=== PATIENT | female | born 1970 | race Caucasian/White ===

== ENCOUNTER → 2018-02-25 08:53 | Outpatient (CLI) | payer MEDICAID, SELFPAY ==
[2018-02-25 09:43] LABS: Abs Immature Grans 0.02 k/cumm (0.0-0.09); Absolute Basophil Count 0.03 k/cumm (0.0-0.2); Absolute Eosinophil Count 0.11 k/cumm (0.0-0.7); Absolute Lymphocyte Count 3.02 k/cumm (1.2-3.4); Absolute Monocyte Count 0.67 k/cumm (0.11-0.7); Basophils % 0.3; HCT 42.3 % (36.0-46.0); HGB 14.1 g/dL (12.0-15.5); Immature Grans % 0.2; Lymphocytes % 27.4; Mean Corp. HGB Concentration 33.3 g/dL (32.0-36.0); Mean Corpuscular Hemoglobin 32.9 pg (27.0-33.0); Mean Corpuscular Volume 98.8 fL (80-95); Mean Platelet Volume 11.2 fL (8.0-11.0); Monocytes % 6.1; Platelet Count 218 x1000/uL (130-400); RBC 4.28 m/cumm (4.00-5.20); RBC Distribution Width 12.7 % (11.7-14.6); White Blood Cell Count 11.04 k/cumm (4.4-10.8)
[2018-02-25 09:48] LABS: Absolute Neutrophil Count 7.18 k/cumm (1.2-6.7)
[2018-02-25 11:19] LABS: Anion Gap 8.6 mmol/L (3-11); BUN 15 mg/dL (7-18); CO2 27.4 mmol/L (21.0-32.0); CREATININE 0.89 mg/dL (0.55-1.02); Calcium 8.8 mg/dL (8.5-10.1); Chloride 104 mmol/L (98-107); Glucose 93 mg/dL (70-100); Potassium 4.1 mmol/L (3.5-5.1); Sodium 140 mmol/L (136-145)
[2018-02-25 11:37] LABS: Cholesterol 140 mg/dL (50-200); HDL Cholesterol 53 mg/dL (40-60); LDL CHOLESTEROL 70 mg/dL (<100); Triglyceride 133 mg/dL (30-150)
== END ==
PROVIDERS: Student in an Organized Health Care Education/Training Program; PCP Internal Medicine; Visit Provider Internal Medicine
DX: E03.9 Hypothyroidism, unspecified (principal); R53.83 Other fatigue; R63.8 Other symptoms and signs concerning food and fluid intake; N93.9 Abnormal uterine and vaginal bleeding, unspecified; Z13.220 Encounter for screening for lipoid disorders
CPT/HCPCS: 36415; 80048; 80061; 83721; 84443; 85025

== ENCOUNTER 2018-06-05 12:37 | Outpatient (REF) | payer MEDICAID, SELFPAY ==
--- NOTE | 2018-06-05 15:40 | ENDOMET_PTH ---
PATIENT: Michelle Brown LOC: N U#:[id number] AGE/SX: 47/F ROOM: RE06/05/[address]: Marimar Corey : 1970 BED: DIS: 06/05/2018 SPEC #: [id number] RECD: 06/06/18 12:48 STATUS: MELISSA REQ #: [id number] ROMY: 06/05/18 15:[address]: Marimar Corey DEPT: Surgical Specimen RECD BY: Kusum Gu ENTERED: 06/06/18 12:48 SP TYPE: Endomet OTHR DR: Tiffany Cantrell MD Tissues: 1 - ENDOMETRIUM BX/SAVITA Procedures: GROSS AND MICRO LEVEL 4 Comments: [id number]
== END 2018-06-05 12:57 ==
LOC: LBN 12:37
PROVIDERS: PCP Internal Medicine; Visit Provider Obstetrics & Gynecology Gynecology
DX: N93.8 Other specified abnormal uterine and vaginal bleeding (principal); N85.8 Other specified noninflammatory disorders of uterus
CPT/HCPCS: 88305

== ENCOUNTER 2018-06-05 16:21 | Outpatient (CLI) | payer MEDICAID, SELFPAY ==
[2018-06-05 18:02] LABS: TSH (W/Ref FT4) 9.45 uIU/mL (0.358-3.74)
[2018-06-05 19:31] LABS: FREE T4 1.04 ng/dL (0.76-1.46)
== END 2018-06-05 16:41 ==
PROVIDERS: PCP Internal Medicine; Visit Provider Obstetrics & Gynecology Gynecology
DX: N93.9 Abnormal uterine and vaginal bleeding, unspecified (principal)
CPT/HCPCS: 36415; 85027; 84439; 84443

== ENCOUNTER 2020-11-01 01:24 | Outpatient (CLI) | payer MEDICAID, SELFPAY ==
--- NOTE | 2020-11-01 06:15 | DI.US_ITS ---
Exam(s) US PELVIS TRANSVAGINAL EXAM: US PELVIS TRANSVAGINAL CLINICAL HISTORY: abnormal uterine bleeding. Rx with norethindrone,n93.9. TECHNIQUE: Transabdominal and transvaginal pelvic ultrasound was performed using standard protocol. COMPARISON: No exams were available for comparison FINDINGS: KIDNEYS: Kidneys are symmetric in size. There is an 8 mm echogenic focus in the left kidney which may represent a nonobstructive stone. No evidence of hydronephrosis. No renal mass or cyst identified. UTERUS: Position: Anteverted. Size: 5.3 long by 2.3 AP by 3 transverse cm Endometrium: 0.1 cm. Normal for patient's menstrual status. Myometrium: Unremarkable. Cervix: Unremarkable. OVARIES: Right: 2.2 x 1.3 x 1.5 cm Cyst or mass: None. Left: 1.5 x 1 x 1 cm Cyst or mass: None. DOPPLER: Color: Symmetric and uniform flow to both ovaries. No hyperemia. Duplex: Normal ovarian arterial waveforms visualized. CUL-DE-SAC: Free fluid: None. Other: None. IMPRESSION: 1. 8 mm echogenic focus in the left kidney which may represent a nonobstructing stone. 2. Normal-appearing uterus with endometrial stripe within normal limits. 3. Unremarkable bilateral ovaries. DATA REPOSITORY:
== END 2020-11-01 01:44 ==
PROVIDERS: PCP Internal Medicine; Visit Provider Obstetrics & Gynecology Gynecology
DX: N93.8 Other specified abnormal uterine and vaginal bleeding (principal); E03.9 Hypothyroidism, unspecified; N20.0 Calculus of kidney
CPT/HCPCS: 76830; 76856

== ENCOUNTER 2020-11-01 02:21 | Outpatient (CLI) | payer MEDICAID, SELFPAY ==
[2020-11-01 13:08] LABS: TSH (W/Ref FT4) 0.19 uIU/mL (0.36-3.74)
[2020-11-01 13:26] LABS: FREE T4 1.46 ng/dL (0.76-1.46)
== END 2020-11-01 02:22 | disposition home or self-care (01) ==
LOC: LOS 02:22
PROVIDERS: PCP Internal Medicine; Visit Provider Obstetrics & Gynecology Gynecology
DX: E03.9 Hypothyroidism, unspecified (principal); N93.8 Other specified abnormal uterine and vaginal bleeding
CPT/HCPCS: 36415; 84439; 84443

== ENCOUNTER 2021-05-16 03:42 | Outpatient (CLI) | payer MEDICAID, SELFPAY ==
[2021-05-16 12:17] LABS: TSH (W/Ref FT4) < 0.01 uIU/mL (0.36-3.74)
[2021-05-16 12:46] LABS: FREE T4 1.43 ng/dL (0.76-1.46)
== END 2021-05-16 03:43 | disposition home or self-care (01) ==
LOC: LBO 03:42
PROVIDERS: PCP Internal Medicine; Visit Provider Obstetrics & Gynecology Gynecology
DX: E03.9 Hypothyroidism, unspecified (principal)
CPT/HCPCS: 36415; 84439; 84443

== ENCOUNTER 2022-03-16 04:04 | Outpatient (CLI) | payer MEDICAID, SELFPAY ==
[2022-03-16 11:49] LABS: Abs Immature Grans 0.04 10^3/uL (0.0-0.06); Absolute Basophil Count 0.04 10^3/uL (0.0-0.2); Absolute Eosinophil Count 0.09 10^3/uL (0.0-0.7); Absolute Lymphocyte Count 3.11 10^3/uL (1.2-3.4); Absolute Monocyte Count 0.76 10^3/uL (0.1-0.8); Absolute Neutrophil Count 5.96 10^3/uL (1.2-6.7); Basophils % 0.4; Eosinophils % 0.9; HCT 42.9 % (36.0-46.0); HGB 14.3 g/dL (11.2-15.7); Immature Grans % 0.4; Lymphocytes % 31.1; MCH 31.8 pg (27.0-33.0); MCHC 33.3 % (32.0-36.0); MCV 96 fL (80-95); MPV 10.3 fL (8.0-11.0); Monocytes % 7.6; Neutrophils % 59.6; Platelet Count 228 10^3/uL (130-400); RBC 4.49 10^6/uL (3.93-5.22); RDW 11.9 % (11.7-14.6); RDW-SD 42.4 fL
[2022-03-16 12:24] LABS: Anion Gap 9.8 mmol/L (3-11); BUN 15 mg/dL (7-18); CO2 25.2 mmol/L (21.0-32.0); CREATININE 0.8 mg/dL (0.55-1.02); Calcium 8.9 mg/dL (8.5-10.1); Chloride 104 mmol/L (98-107); Estimated GFR 88.05 (mL/min/1.73m2); Glucose 95 mg/dL (74-106); Lipase 155 U/L (73-393); Potassium 3.7 mmol/L (3.5-5.1); Sodium 139 mmol/L (136-145); TSH (W/Ref FT4) 0.02 uIU/mL (0.36-3.74)
[2022-03-16 12:40] LABS: FREE T4 1.72 ng/dL (0.76-1.46)
== END 2022-03-16 04:05 | disposition home or self-care (01) ==
LOC: LBO 04:06
PROVIDERS: PCP Nurse Practitioner Adult Health; Visit Provider Nurse Practitioner Adult Health
DX: E03.9 Hypothyroidism, unspecified (principal); R10.13 Epigastric pain; R10.9 Unspecified abdominal pain; R12 Heartburn
CPT/HCPCS: 36415; 80048; 83690; 84439; 84443; 85025

== ENCOUNTER → 2022-03-24 00:13 | Outpatient (CLI) | payer MEDICAID, SELFPAY ==
--- OUTSIDE RECORDS SUMMARY | 2022-03-24 00:15 | XMS_ITS | Encounter Summary ---
:[address] [facility] Address [address] [place] [address] Care Team Providers Name Role Phone Unavailable Primary Care Provider Unavailable Encounter Details Date Type Department Care Team Description 04/24/2012 Results Only [facility] Chanelle Cantrell MD Laboratory Services - [address] [place] [id number] [address] [facility] [place] [address] [phone] Social History Tobacco Use Types Packs/Day Years Used Date Never Assessed Sex Assigned at Date Recorded Not on file documented as of this encounter Plan of Treatment Not on filedocumented as of this encounter Procedures Procedure Name Priority Date/Time Associated Diagnosis Comme nts PAP TEST- RESULT Routine 04/24/2012 0:00 EDT Resu lts for this ONLY procedure are i n the results section. documented in this encounter Results PAP TEST- RESULT ONLY (04/24/2012 0:00 EDT) Pathology Report: CYTOPATHOLOGY REPORT [facility] Reports generated via electronic interface contain yue ginal data; however they are lacking the format of the original re port. Caution should be taken when reading/interpreting unfo rmatted reports. Name: ? ANA ROD ? Accession #: ? [id number] : ? 1970 (Age: 41) ??F ?Collect Date: ? 04/02 Location: ? [facility] ? Receive Date : ? 04/26/2012 Provider: ?CHANELLE CANTRELL MD Copy to: ? Specimen/Source: ? Pap Test, Cervix, ThinPrep Imaging System with manual evaluation Last Menstrual Period: ? 04/24/2012 ? SPECIMEN ADEQUACY ? Satisfactory for Evaluation - transformation zone component absent GENERAL CATEGORIZATION ? Negative for Intraepithelial Lesion or Malignan cy ? Document reviewed and electronically signed by: ? Jessica Reyes, BRANDIE(ASCP)(IAC) ? Report Date: ??05/01/2012 13:24 End of Report Specimen Performing Organization Address City/State/ZIP Code Phon e Number [facility] [address] [place] [address] SERVICES [facility] [address] [place] [address] documented in this encounter Visit Diagnoses Not on filedocumented in this encounter
--- OUTSIDE RECORDS SUMMARY | 2022-03-24 00:15 | XMS_ITS | Encounter Summary ---
:1970 Author Organization [facility] Address [address] [place] [address] Care Team Providers Name Role Phone Unknown, Provider Primary Care Provider Encounter Details Date Type Department Care Team Description 04/25/2017 Hospital Encounter [facility] [place] Unknown, Provider, [facility] [address] [place] [address] [place] [address] (Work) [phone] Social History Tobacco Use Types Packs/Day Years Used Date Never Assessed Sex Assigned at Date Recorded Not on file documented as of this encounter Discharge Disposition Disposition Code Departure Means Destination Home or Self Retirement documented in this encounter Plan of Treatment Not on filedocumented as of this encounter Visit Diagnoses Not on filedocumented in this encounter Care Teams Loss Prevention And Safety Manager Relationship Specialty Start Date End Date Unknown, Provider, PCP - General 05/08/15 documented as of this encounter
--- OUTSIDE RECORDS SUMMARY | 2022-03-24 00:15 | XMS_ITS | Encounter Summary ---
:1970 Author Organization [facility] Address [address] [place] [address] Care Team Providers Name Role Phone Unknown, Provider Primary Care Provider Encounter Details Date Type Department Care Team Description 06/05/2018 Hospital Encounter [facility] [place] Unknown, Provider, [facility] [address] [place] [address] [place] [address] (Work) [phone] Social History Tobacco Use Types Packs/Day Years Used Date Never Assessed Sex Assigned at Date Recorded Not on file documented as of this encounter Discharge Disposition Disposition Code Departure Means Destination Home or Self Jail documented in this encounter Plan of Treatment Not on filedocumented as of this encounter Visit Diagnoses Not on filedocumented in this encounter Care Teams System Support Analyst Relationship Specialty Start Date End Date Unknown, Provider, PCP - General 05/08/15 documented as of this encounter
--- OUTSIDE RECORDS SUMMARY | 2022-03-24 00:15 | XMS_ITS | Encounter Summary ---
:1970 Author Organization [facility] Address [address] [place] [address] Care Team Providers Name Role Phone Unavailable Primary Care Provider Unavailable Encounter Details Date Type Department Care Team Description 10/08/2006 Hospital Encounter [facility] - Maggie Cadena, Other MD [id number] [place] [phone] (Wo rk) Social History Tobacco Use Types Packs/Day Years Used Date Never Assessed Sex Assigned at Date Recorded Not on file documented as of this encounter Discharge Disposition Disposition Code Departure Means Destination Home or Self Care documented in this encounter Plan of Treatment Not on filedocumented as of this encounter Visit Diagnoses Not on filedocumented in this encounter
--- OUTSIDE RECORDS SUMMARY | 2022-03-24 00:15 | XMS_ITS | Encounter Summary ---
:1970 Author Organization [facility] Address [address] [place] [address] Care Team Providers Name Role Phone Unknown, Provider Primary Care Provider Encounter Details Date Type Department Care Team Description 06/05/2018 Results Only [facility]- Murali Martinez MD [phone] [place] [address] [address] [place] [address] (Wo rk) Social History Tobacco Use Types Packs/Day Years Used Date Never Assessed Sex Assigned at Date Recorded Not on file documented as of this encounter Plan of Treatment Not on filedocumented as of this encounter Procedures Procedure Name Priority Date/Time Associated Diagnosis Comme [facility] SURGICAL PATHOLOGY Routine 06/05/2018 15:58 Resul ts for this EST procedure are i n the results section. documented in this encounter Results SURGICAL PATHOLOGY (06/05/2018 15:58 EST) Pathology Report: SURGICAL PATHOLOGY REPORT [facility] Reports generated via electronic interface conta in original data; [facility] however they are lacking the format of the original re port. SERVICES Caution should be taken when reading/interpreting unfo rmatted reports. Name: ? ANA PENALOZA ? Accession #: ? [id number] ? : ? 1970 (Age: 47 ) ??F ? Collect Date: ? 06/05/2018 ? Location: ? [facility] ? Receive Date: ? 06/06/20 18 ? Provider: MURALI LINN MD Copy to: CHANELLE ETIENNE MD ? Final Pathologic Diagnosis: ENDOMETRIUM, BIOPSY: - Inactive and atrophic endometrial glan ds and stromal pseudo-decidual changes consistent with exogenous progesterone effect. - Stromal and glandular breakdown. - Endocervical glandular epithelium with no specific histopathologic features. Document reviewed and electronically signed by: Pancho Taylor MD Report ??Date: 06/08/2018 12:06 By the signature above, the attending physician certif ies that he/she has personally conducted a gross and/or microscopic examin ation of the described specimens and rendered or confirmed the above diagnosi s. Specimen(s) Received: Endometrial biopsy Clinical History: Abnormal uterine bleeding Gross Description: ? Received in formalin labelled with proper patient identification (initials P, S) and endometrium are duran and brown tissu e fragments aggregating 1.0 x 0.8 x 0.6 cm. Entirely submitted in 1 and 2. FELICITA Winston (ASCP) 06/06/2018 4:15 PM End of Report Specimen Performing Organization Address City/State/ZIP Code Phon e Number [facility] [address] [place] [address] SERVICES documented in this encounter Visit Diagnoses Not on filedocumented in this encounter Care Teams Mobile Tester Relationship Specialty Start Date End Date Unknown, Provider, PCP - General 05/08/15 documented as of this encounter
--- OUTSIDE RECORDS SUMMARY | 2022-03-24 00:15 | XMS_ITS | Encounter Summary ---
:1970 [address] [facility] Address [address] [place] [address] Care Team Providers Name Role Phone Unknown, Provider Primary Care Provider Encounter Details Date Type Department Care Team Description 04/25/2017 Results Only [facility]- Delores Ann [phone] DO [address] [place], [place] [phone] (Wo rk) Social History Tobacco Use Types Packs/Day Years Used Date Never Assessed Sex Assigned at Date Recorded Not on file documented as of this encounter Plan of Treatment Not on filedocumented as of this encounter Procedures Procedure Name Priority Date/Time Associated Diagnosis Comme nts PAP TEST- RESULT Routine 04/25/2017 0:00 EDT Resu lts for this ONLY procedure are i n the results section. documented in this encounter Results PAP TEST- RESULT ONLY (04/25/2017 0:00 EDT) Pathology Report: CYTOPATHOLOGY REPORT [facility] Reports generated via electronic interface contain yue ginal data; SERVICES however they are lacking the format of the original re port. Caution should be taken when reading/interpreting unfo rmatted reports. Name: ? ANA PENALOZA ? Accession #: ? [id number] ? : ? 1970 (Age: 46 ) ??F ?Collect Da te: ? 04/25/2017 ? Location: ? [facility] ? Receive Date: ? 017 ? Provider: DELORES JORGE DO Copy to: ? Final Report SPECIMEN ADEQUACY ? Satisfactory for Evaluation - transformation zone component present - scant squamous epithelial component secondary to exc essive blood - obscuring contamination, possibly lubricant GENERAL CATEGORIZATION ? Other, see interpretation INTERPRETATION ? Endometrial cells present in a woman equal to o r greater than age 45. Negative for Intraepithelial Lesion. EDUCATIONAL NOTES/RECOMMENDATIONS ? ASCCP management guid erin advises using histologic endometrial assessment only in postmenopausal women. Benign appearing endometrial cells on Pap tests are usually a normal finding in women with regular menstrual cycles, especially if the Pap test was collected during the first half of the menstrual cycle. There is data showing that e ndometrial cells on Pap tests may be associated with endometrial/uterine abnormal ities in post menopausal women or in perimenopausal women with abnormal bleeding. There is limited data on the significance of aiyana ign endometrial cells in post menopausal women on HRT. ??Clinical correlation is rec ommended. Note: ??The Pap test is not an accurate test for the screening of endometrial lesions and should not be used as a follow up in patie nts with clinical suspicion of endometrial pathology. Last Menstrual Period: 04/17/2017 Other: Additional clinical i nformation: Mother had uterine CA, Sister CX Cancer. Metromgnaormagia Specimen/Source: ??Pap Test, Cervix, ThinPrep Imaging System with manual evaluation Document reviewed and electronically signed by: ? RUKHSANA HAY MD ? Report ??Date: 05/17/2017 18:58 HPV with Pap Test ? Date Ordered: ? 05/17/2017 ? Status: ?? Signed Out ?Date Complete: ? 05/21/2017 ? By: ??S ystem Interface ? Date Reported: ? 05/21/2017 ? Interpretation RESULT: Positive for high or intermediate risk HPV. E6 OR E7 mRNA from one or more types of HPV types 16,1 8,31, 33,35,39,45,51,52,56,58,59,66, and 68 is detected by web site designer mediated amplification. High and intermediate risk HPV types are associated wi th most squamous intraepithelial lesions and cervical can cers. Comments Document reviewed and electronically signed by: ? System Interface ? Report date: 05/21/2017 By the signature above, the attending physician certif ies that he/she has personally conducted a gross and/or microscopic examin ation of the described specimens and rendered or confirmed the above diagnosi s. End of Report Specimen Performing Organization Address City/State/ZIP Code Phon e Number [facility] [address] [place] [address] SERVICES documented in this encounter Visit Diagnoses Not on filedocumented in this encounter Care Teams Learning Support Services Director Relationship Specialty Start Date End Date Unknown, Provider, PCP - General 05/08/15 documented as of this encounter
--- OUTSIDE RECORDS SUMMARY | 2022-03-24 00:15 | XMS_ITS | Encounter Summary ---
:1970 Author Organization [facility] Address [address] [place] [address] Care Team Providers Name Role Phone Unavailable Primary Care Provider Unavailable Encounter Details Date Type Department Care Team Description 10/08/2006 Results Only [facility] - Joan Sheppard MD conversion [address] [place] [address] [address] [place] [phone] (Wo rk) Social History Tobacco Use Types Packs/Day Years Used Date Never Assessed Sex Assigned at Date Recorded Not on file documented as of this encounter Plan of Treatment Not on filedocumented as of this encounter Procedures Procedure Name Priority Date/Time Associated Diagnosis Comme [facility] CYTOPATHOLOGY Routine 10/08/2006 0:00 EDT Results for this procedure are i n the results section . documented in this encounter Results CYTOPATHOLOGY (10/08/2006 0:00 EDT) Pathology Report: CYTOPATHOLOGY REPORT [facility] Reports generated via electronic interface contain yue ginal data; however they are lacking the format of the original re port. Caution should be taken when reading/interpreting unfo rmatted reports. Name: ? ANA ROD ? Accession #: ? [id number] : ? 1970 (Age: 36) ??F ?Collect Date: ? 03/2007 Location: ? [facility] ? Receive Date: ? 10/11/2006 Provider: ?JOAN BELL MD Copy to: ? Specimen/Source: ? ThinPrep Pap Test, Cervix/Endocervix, processed on [employer] ThinPrep Imaging System, with manual evaluation Last Menstrual Period: ? Other: ? HPVA - HPV testing requested if ASC-US on the current ThinPrep Pap test. ? SPECIMEN ADEQUACY ? Satisfactory for Evaluation - transformation zone component present GENERAL CATEGORIZATION ? Negative for Intraepithelial Lesion or Malignan cy ? Document reviewed and electronically signed by: ? BRANDIE Nagel(ASCP) ? Report Date: ??10/12/2006 12:11 End of Report Specimen Performing Organization Address City/State/ZIP Code Phon e Number [facility] [address] [place] [address] SERVICES [facility] [address] [place] [address] documented in this encounter Visit Diagnoses Not on filedocumented in this encounter
--- NOTE | 2022-03-24 08:00 | DI.US_ITS ---
Exam(s) US ABDOMEN EXAM: US ABDOMEN CLINICAL HISTORY: r/o AAA cholelithiasis/cystits,ABD AND EPIGASTRIC PAIN,R10.13,R12 TECHNIQUE: Ultrasound abdomen performed using standard protocol. COMPARISON: US US PELVIS TRANSVAGINAL from 11/01/2020 FINDINGS: LIVER: Normal size and echogenicity. No focal liver lesions are seen.. GALLBLADDER: No evidence of cholelithiasis. No evidence of wall thickening. No pericholecystic fluid identified. SHAFER'S SIGN: Negative. BILIARY SYSTEM: No intrahepatic or extrahepatic biliary ductal dilation. KIDNEYS: Kidneys are symmetric in size. No evidence of renal calculi. No evidence of hydronephrosis. No renal mass or cyst identified. PANCREAS: Normal where visualized. SPLEEN: Not enlarged. ABDOMINAL AORTA AND IVC: Visualized portions normal caliber. ASCITES: None seen. IMPRESSION: Normal sonographic appearance of the upper abdomen. DATA REPOSITORY:
== END ==
PROVIDERS: PCP Nurse Practitioner Adult Health; Visit Provider Nurse Practitioner Adult Health
DX: E03.9 Hypothyroidism, unspecified (principal); R10.13 Epigastric pain; R10.9 Unspecified abdominal pain; R12 Heartburn
CPT/HCPCS: 76700

== ENCOUNTER 2022-07-31 12:39 | Outpatient (REF) | payer MEDICAID, SELFPAY ==
--- NOTE | 2022-07-31 12:00 | PAPFT_PTH ---
PATIENT: Michelle Brown LOC: [facility] U#:[id number] AGE/SX: 51/F ROOM: RE07/31/[address]: Elisabet Caldwell APRN : 1970 BED: DIS: 07/31/2022 SPEC #: [id number] RECD: 07/31/22 17:43 STATUS: MELISSA REHeriberto #: [id number] ROMY: 07/31/22 12:[address]: Elisabet Caldwell DEPT: [facility] Cytology RECD BY: Kusum Gu Tissues: 1 - CX/ENDOCX FOR PAP SMEARS Procedures: PAP THIN PREP/UVM Screening HPV DNA PROBE Comments: [id number]
[2022-08-02 15:04] LABS: Chlamydia Result Negative (Negative); GC Result Negative (Negative)
== END 2022-07-31 12:40 | disposition home or self-care (01) ==
LOC: LBN 12:39
PROVIDERS: PCP Nurse Practitioner Adult Health; Referring Provider Nurse Practitioner Adult Health; Visit Provider Nurse Practitioner Adult Health
DX: N89.8 Other specified noninflammatory disorders of vagina (principal); Z11.3 Encounter for screening for infections with a predominantly sexual mode of transmission; Z12.4 Encounter for screening for malignant neoplasm of cervix; R87.612 Low grade squamous intraepithelial lesion on cytologic smear of cervix (LGSIL); Z11.51 Encounter for screening for human papillomavirus (HPV); R87.810 Cervical high risk human papillomavirus (HPV) DNA test positive
CPT/HCPCS: 87491; 87591; 88142; 87480; 87510; 87624; 87660

== ENCOUNTER 2022-08-14 15:28 | Outpatient (REF) | payer MEDICAID, SELFPAY ==
--- NOTE | 2022-08-14 15:30 | ENDO_PTH ---
PATIENT: Michelle Brown LOC: [facility] U#:[id number] AGE/SX: 51/F ROOM: RE08/14/[address]: Marimar Corey : 1970 BED: DIS: 08/14/2022 SPEC #: [id number] RECD: 08/14/22 17:32 STATUS: MELISSA REHeriberto #: [id number] ROMY: 08/14/22 15:[address]: Marimar Corey DEPT: Surgical Specimen RECD BY: Kusum Gu ENTERED: 08/14/22 17:33 SP TYPE: Endo OTHR DR: Elisabet Caldwell APRN Tissues: 1 - ENDOCERVICAL BX/CURRETTE 2 - CERVICAL BIOPSY Procedures: GROSS AND MICRO LEVEL 4 Comments: [id number]
== END 2022-08-14 15:29 | disposition home or self-care (01) ==
LOC: LBN 15:28
PROVIDERS: PCP Nurse Practitioner Adult Health; Visit Provider Obstetrics & Gynecology Gynecology
DX: R87.612 Low grade squamous intraepithelial lesion on cytologic smear of cervix (LGSIL) (principal); R87.810 Cervical high risk human papillomavirus (HPV) DNA test positive; N88.8 Other specified noninflammatory disorders of cervix uteri
CPT/HCPCS: 88305

== ENCOUNTER 2022-09-04 02:09 | Outpatient (CLI) | payer MEDICAID, SELFPAY ==
--- NOTE | 2022-09-04 06:45 | DI.MAMMO_ITS ---
Exam(s) MAMMO SCREENING EXAM: MAMMO SCREENING CLINICAL HISTORY: screening,z12.39 TECHNIQUE: Mammograms were interpreted according to the usual protocol including computer analysis w [employer] CAD system, tomosynthesis and C-view imaging. COMPARISON: No exams were available for comparison. Baseline examination. FINDINGS: The breasts are composed of scattered fibroglandular densities, Breast Density category B. No suspicious masses or suspicious microcalcifications are seen. No skin thickening or abnormal axillary lymph nodes are seen. IMPRESSION: BI-RADS Category 1, Negative mammogram Yearly screening mammography is recommended. Breast Density - Category B, scattered fibroglandular densities. A negative radiographic report should not delay biopsy if a dominant or clinically suspicious mass is present. Up to ten percent of cancers are not identified on mammography. A negative report may reinforce clinical impression. Adenosis and dense breasts may obscure an underlying neoplasm. False positive reports average 6 to 10%. Patient will receive a letter notifying them of these results.
--- NOTE | 2022-09-04 07:52 | DI.CTLCSR_ITS ---
Exam(s) CT CHEST LUNG CANCER SCREEN EXAM: CT CHEST LUNG CANCER SCREEN CLINICAL HISTORY: Screening for lung cancer,current smoker,f17.200 TECHNIQUE: Imaging Protocol: Axial computed tomography images with coronal and sagittal reformatted images were created and reviewed. Low dose screening protocol. COMPARISON: No exams were available for comparison FINDINGS: Tracheobronchial tree: No bronchiectasis or mucus plugging.. Mediastinum and Alley: No dominant adenopathy or fluid collection. Pulmonary parenchyma: Mild biapical scarring. No consolidation or dominant measurable mass. Mild emp hysematous changes. Lung Nodules: 3 millimeter nodule right lower lobe. Few scattered 2 millimeter nodules noted. Pleura: No effusion. No pneumothorax. Heart: The heart is not dilated. coronary artery calcifications are seen. Aorta: Thoracic aorta non-dilated. Upper abdomen: Unremarkable. Bones: Unremarkable for age. Soft Tissues: Unremarkable. IMPRESSION: No suspicious pulmonary nodules. Lung RADS Cat 2 - Benign Appearance / Behavior: Nodules with a very low likelihood of becoming a clin ically active cancer due to size or lack of growth Lung-RADS 1.0 CATEGORIES: Category 0 - Prior chest CT exam(s) being located for comparison. Category 1 - Annual screening in 12 months. No nodules or definitely benign nodules. Category 2 - Annual screening in 12 months. Benign appearance. Nodules with low likelihood of becomin g active cancer. Category 3 - 6-month follow-up. Probably benign. Short-term follow-up suggested. Nodules with low lik elihood of becoming active cancer. Category 4A - 3-month follow-up and CT/PET if >8 mm in size. Suspicious finding. Findings which requi re additional testing. Category 4B - Findings which require additional testing and tissue sampling. Category 4X - Category 3 or 4 nodules with additional features or imaging findings that increases the suspicion of malignancy. Modifier S- Potentially clinically significant findings (non lung cancer) RADIATION DOSE DELIVERED: 76.39mGy.cm Total DLP DATA REPOSITORY: All CT scans at this facility are submitted to the National Radiology Data Registry (NRDR) Dose Index Registry (DIR) with the [employer] (ACR). RADIATION OPTIMIZATION: All CT scans at this facility use at least one of these dose optimization te chniques: automated exposure control; mA and/or kV adjustment per patient size (includes targeted exa ms where dose is matched to clinical indication); or iterative reconstruction.
== END 2022-09-04 02:29 ==
LOC: DI 02:09
PROVIDERS: PCP Nurse Practitioner Adult Health; Visit Provider Nurse Practitioner Adult Health
DX: Z12.31 Encounter for screening mammogram for malignant neoplasm of breast (principal); Z12.2 Encounter for screening for malignant neoplasm of respiratory organs; F17.210 Nicotine dependence, cigarettes, uncomplicated; J43.8 Other emphysema; R91.8 Other nonspecific abnormal finding of lung field
CPT/HCPCS: 71271; 77063; 77067

== ENCOUNTER 2024-04-24 11:16 | Outpatient (REF) | payer SELFPAY ==
--- NOTE | 2024-04-24 11:00 | PAPFT_PTH ---
PATIENT: Michelle Brown LOC: [facility] U#:[id number] AGE/SX: 53/F ROOM: RE04/24/[address]: Marimar Corey : 1970 BED: DIS: 04/24/2024 SPEC #: [id number] RECD: 04/24/24 13:01 STATUS: MELISSA REHeriberto #: [id number] ROMY: 04/24/24 11:[address]: Marimar Corey DEPT: [facility] Cytology RECD BY: Kusum Gu ENTERED: 04/24/24 13:01 SP TYPE: PAPFT RADHA DR: Elisabet Caldwell APRN Tissues: 1 - CX/ENDOCX FOR PAP SMEARS Procedures: PAP THIN PREP/UVM Screening HPV DNA PROBE Comments: [id number] (HPV 16 & 18/45)
[2024-04-25 11:58] LABS: Chlamydia Result Negative (Negative); GC Result Negative (Negative)
== END 2024-04-24 11:17 | disposition home or self-care (01) ==
LOC: LBN 11:16
PROVIDERS: PCP Nurse Practitioner Adult Health; Visit Provider Obstetrics & Gynecology Gynecology
DX: B97.7 Papillomavirus as the cause of diseases classified elsewhere (principal); A63.0 Anogenital (venereal) warts; Z12.39 Encounter for other screening for malignant neoplasm of breast; N95.1 Menopausal and female climacteric states
CPT/HCPCS: 87491; 87591; 88142; 87624

== ENCOUNTER 2024-08-25 01:28 | Outpatient (CLI) | payer BC, SELFPAY ==
--- NOTE | 2024-08-25 06:45 | DI.RAD_ITS ---
Exam(s) XR ARTHRITIS SERIES EXAM: XR ARTHRITIS SERIES CLINICAL HISTORY: ? erosions;family h/o RA,BILAT HAND PAIN,Z82.61,M79.641,m79.642. TECHNIQUE: 2D digital imaging was performed. Two views of both hands. COMPARISON: No exams were available for comparison FINDINGS: BONES: No acute fracture is present. No erosive or productive bony lesions are seen. JOINTS: No dislocation present. The joint spaces are maintained. SOFT TISSUE: Normal. IMPRESSION: Unremarkable radiographs of the bilateral hands. DATA REPOSITORY: RADIATION DOSE DELIVERED:
== END 2024-08-25 01:48 ==
LOC: DI 01:28
PROVIDERS: PCP Nurse Practitioner Adult Health; Visit Provider Nurse Practitioner Adult Health
DX: M79.641 Pain in right hand (principal); M79.642 Pain in left hand; Z82.61 Family history of arthritis
CPT/HCPCS: 73120

== ENCOUNTER 2024-09-23 02:18 | Outpatient (CLI) | payer BC, SELFPAY ==
[2024-09-23 07:37] LABS: ESR 3 mm/hr (0-30)
[2024-09-23 08:48] LABS: Anion Gap 12.8 mmol/L (3-11); BUN 15 mg/dL (7-18); CO2 26.2 mmol/L (21.0-32.0); CREATININE 0.8 mg/dL (0.55-1.02); Calcium 9.3 mg/dL (8.5-10.1); Calculated LDL 101 mg/dL (<100); Chloride 104 mmol/L (98-107); Cholesterol 179 mg/dL (<200); Estimated GFR 86.96 (mL/min/1.73m2); Glucose 97 mg/dL (74-106); HDL Cholesterol 54 mg/dL (>or=50); Potassium 4.2 mmol/L (3.5-5.1); Sodium 143 mmol/L (136-145); TSH (W/Ref FT4) 0.59 uIU/mL (0.36-3.74); Triglyceride 123 mg/dL (<150)
[2024-09-23 09:01] LABS: C-Reactive Protein < 0.50 mg/dL (<or=0.5)
[2024-09-23 17:34] LABS: Rheumatoid Factor <8.6 IU/mL (<12.0)
[2024-09-24 10:50] LABS: Cyclic Citrullinated Peptide <2.5 U/mL (<5.0)
== END 2024-09-23 02:19 | disposition home or self-care (01) ==
PROVIDERS: PCP Nurse Practitioner Adult Health; Referring Provider Nurse Practitioner Adult Health; Visit Provider Nurse Practitioner Adult Health
DX: E89.0 Postprocedural hypothyroidism (principal); R79.89 Other specified abnormal findings of blood chemistry; Z82.61 Family history of arthritis; M79.641 Pain in right hand; M79.642 Pain in left hand; R20.2 Paresthesia of skin; Z13.1 Encounter for screening for diabetes mellitus; Z13.220 Encounter for screening for lipoid disorders
CPT/HCPCS: 36415; 80048; 80061; 85652; 86200; 84443; 86140; 86431

== ENCOUNTER 2025-04-09 11:33 | Outpatient (REF) | payer BC, SELFPAY ==
[2025-04-09 14:44] LABS: RBC 0-2 HPF (0-2); WBC Negative HPF (0-5)
[2025-04-10 11:42] LABS: Chlamydia Result Negative (Negative); GC Result Negative (Negative)
== END 2025-04-09 11:34 | disposition home or self-care (01) ==
LOC: LBN 11:33
PROVIDERS: PCP Nurse Practitioner Adult Health; Visit Provider Physician Assistant Medical
DX: R10.20 Pelvic and perineal pain unspecified side (principal)
CPT/HCPCS: 87491; 87591; 81015; 87086; 87480; 87510; 87660

== ENCOUNTER 2025-05-25 15:20 | Outpatient (REF) | payer BC, SELFPAY ==
--- NOTE | 2025-05-25 13:45 | PAPFT_PTH ---
PATIENT: Michelle Brown LOC: [facility] U#:[id number] AGE/SX: 54/F ROOM: RE05/25/[address]: Elisabet Caldwell APRN : 1970 BED: DIS: 05/25/2025 SPEC #: [id number] RECD: 05/26/25 12:48 STATUS: MELISSA REHeriberto #: [id number] ROMY: 05/25/25 13:[address]: Elisabet Caldwell DEPT: [facility] Cytology RECD BY: Kusum Gu Tissues: 1 - CX/ENDOCX FOR PAP SMEARS Procedures: PAP THIN PREP/UVM Screening HPV DNA PROBE Comments: [id number] (HPV 16 & 18/45)
== END 2025-05-25 15:21 | disposition home or self-care (01) ==
LOC: LBN 15:20
PROVIDERS: PCP Nurse Practitioner Adult Health; Visit Provider Nurse Practitioner Adult Health
DX: Z12.4 Encounter for screening for malignant neoplasm of cervix (principal)
CPT/HCPCS: 88142; 87624

== ENCOUNTER → 2025-06-23 00:48 | Outpatient (CLI) | payer BC, SELFPAY ==
--- NOTE | 2025-06-23 07:15 | DI.MAMMO_ITS ---
Exam(s) MAMMO SCREENING EXAM: MAMMO SCREENING CLINICAL HISTORY: screening,Z12.39. TECHNIQUE: Bilateral full field digital CC and MLO mammographic images were obtained with 3D tomosynthesis and utilizing computer aided detection (CAD). COMPARISON: Prior baseline mammogram of August 2022 was reviewed. FINDINGS: In the right breast there is a new asymmetric nodular density seen on the CC view, located 5.5 cm in from the nipple, lateral of center and measuring approximately 8 by 5 mm. This is lobulated and noncalcified. Further imaging recommended. There is a 2nd smaller nodule on the CC view located 4 cm in from the nipple, unchanged. This measures 3-4 mm and appears unchanged from the baseline mammogram of August 2022. In the opposite-left breast there is a small nodular density seen on the CC view approximately 5 cm in from the nipple, lateral of center and measuring 3-4 mm, more evident than previous.. This is also evident on the MLO view. There are no malignant-appearing microcalcifications in either breast. There is no significant architectural distortion nor skin thickening-retraction. IMPRESSION: Bilateral nodules as described above. Spot compression views and bilateral breast ultrasound recommended. BI-RADS Category 0 - Incomplete: Need additional imaging evaluation Breast Density - Category B - There are scattered areas of fibroglandular density. Breast density Category C or D implies that the patient has dense breast tissue. Dense breast tissue can make it harder to find cancer on a mammogram. Dense breast tissue is also associated with an increased risk of breast cancer. This information about the result of the mammogram report was provided to the patient to raise their awareness. Use this report when you speak with the patient about their risks for breast cancer, which includes their family history. At that time, you may recommend additional screening tests (Ultrasound or MRI) as these tests may add significant information. A negative radiographic report should not delay biopsy if a dominant or clinically suspicious mass is present. Up to ten percent of cancers are not identified on mammography. A negative report may reinforce clinical impression. Adenosis and dense breasts may obscure an underlying neoplasm. False positive reports average 6 to 10%. Patient will receive a letter notifying them of these results.
--- NOTE | 2025-06-23 07:15 | DI.CTLCSR_ITS ---
Exam(s) CT CHEST LUNG CANCER SCREEN EXAM: CT CHEST LUNG CANCER SCREEN CLINICAL HISTORY: Screening for lung cancer,[employer], F17.210 TECHNIQUE: Imaging Protocol: Axial computed tomography images with coronal and sagittal reformatted images were created and reviewed. Lung Computer Aided Detection (CAD) was utilized. COMPARISON: CT CT CHEST LUNG CANCER SCREEN from 09/04/2022 FINDINGS: Tracheobronchial tree: Patent where visualized. No bronchiectasis. Pulmonary parenchyma: No consolidation or dominant measurable mass. No architectural distortion. There is right basilar atelectasis. There is biapical scarring present. Lung Nodules: The 3 mm nodule in the lateral aspect of the right lower lobe is unchanged (series 4, image 74). There are few smaller stable nodules in the lungs. There are no new pulmonary nodules. Mediastinum and Alley: No dominant adenopathy or fluid collection. The esophagus is unremarkable. Lymph nodes: Unremarkable. Pleura: No effusion or pneumothorax. Heart: The heart is not dilated. Coronary artery calcifications are present. No pericardial effusion. Aorta: Thoracic aorta non-dilated.Atherosclerotic calcification is present. Upper abdomen: Unremarkable. Soft Tissues: Unremarkable. Bones: Within normal limits. IMPRESSION: Stable pulmonary nodules. There are no new pulmonary nodules. Lung RADS Cat 2 - Benign Appearance / Behavior: Nodules with a very low likelihood of becoming a clinically active cancer due to size or lack of growth Lung-RADS 1.0 CATEGORIES: Category 0 - Prior chest CT exam(s) being located for comparison. Category 1 - Annual screening in 12 months. No nodules or definitely benign nodules. Category 2 - Annual screening in 12 months. Benign appearance. Nodules with low likelihood of becoming active cancer. Category 3 - 6-month follow-up. Probably benign. Short-term follow-up suggested. Nodules with low likelihood of becoming active cancer. Category 4A - 3-month follow-up and CT/PET if >8 mm in size. Suspicious finding. Findings which require additional testing. Category 4B - Findings which require additional testing and tissue sampling. Suspicious finding. Category 4X - Category 3 or 4 nodules with additional features or imaging findings that increases the suspicion of malignancy. Modifier S- Potentially clinically significant finding. (Non lung cancer) RADIATION DOSE DELIVERED: 29.07mGy.cm Total DLP 29.07mGy.cmTotal DLP DATA REPOSITORY: All CT scans at this facility are submitted to the National Radiology Data Registry (NRDR) Dose Index Registry (DIR) with the [employer] ([employer]). RADIATION OPTIMIZATION: All CT scans at this facility use at least one of these dose optimization techniques: automated exposure control; mA and/or kV adjustment per patient size (includes targeted exams where dose is matched to clinical indication); or iterative reconstruction.
== END ==
LOC: DI 00:49
PROVIDERS: PCP Nurse Practitioner Adult Health; Visit Provider Nurse Practitioner Adult Health
DX: F17.210 Nicotine dependence, cigarettes, uncomplicated (principal); Z12.31 Encounter for screening mammogram for malignant neoplasm of breast
CPT/HCPCS: 71271; 77063; 77067